=== PATIENT | female | born 1940 | race Caucasian/White ===

== ENCOUNTER 2022-07-11 10:16 | Outpatient (CLI) | payer MEDICARE, BC | END 2022-07-11 10:17 | disposition home or self-care (01) | LOC: CSHRAD 10:16 | PROVIDERS: ATTEND Family Medicine | DX: R05.9 Cough, unspecified (principal) | CPT/HCPCS: 71046 ==

== ENCOUNTER 2022-09-30 15:44 | Outpatient (CLI) | payer MEDICARE, BC | END 2022-09-30 15:45 | disposition home or self-care (01) | LOC: CSHRAD 15:44 | PROVIDERS: ATTEND Family Medicine | DX: R05.9 Cough, unspecified (principal) | CPT/HCPCS: 71046 ==

== ENCOUNTER 2022-11-07 09:54 | Outpatient (CLI) | payer MEDICARE, BC | END 2022-11-07 09:55 | disposition home or self-care (01) | LOC: CSHMAMMO 09:54 | PROVIDERS: ATTEND Family Medicine | DX: Z13.820 Encounter for screening for osteoporosis (principal); M85.88 Other specified disorders of bone density and structure, other site | CPT/HCPCS: 77080 ==